=== PATIENT | female | born 1985 | race Caucasian/White ===

== ENCOUNTER 2017-09-05 22:17 | Emergency (ER) | payer OTHER, MEDICAID ==
[~2017-09-05] VITALS: Ht 172.7 cm; Wt 145.2 kg
[~2017-09-05 22:17] MED LIST: AMOXICILLIN 50500 MG PO; AMOXICILLIN875 MG PO; CYMBALTA20 MG PO; IBUPROFEN 800800 MG PO; KLONOPIN1 MG PO; LIDOCAINE VISC100 ML PO; NORCO 5-325 TA1 EACH PO; PAXIL10 MG PO; TRAMADOL 50 MG50 MG PO
[2017-09-05 22:22] VITALS: BP 147/90
[2017-09-05] MEDS ORDERED: AMOXICILLIN 50500 MG PO (22:42)
[2017-09-05] MEDS ORDERED: NORCO 5-325 TA1 EACH PO (22:42)
== END 2017-09-05 23:00 | disposition home or self-care (01) ==
LOC: M.ERS 22:17
DX: G89.18 Other acute postprocedural pain (principal); K08.9 Disorder of teeth and supporting structures, unspecified

== ENCOUNTER 2017-09-12 12:16 | Emergency (ER) | payer OTHER, MEDICAID ==
[~2017-09-12] VITALS: Ht 170.2 cm; Wt 145.2 kg
[2017-09-12] MEDS ORDERED: NORCO 5-325 TA1 EACH PO (15:13)
[2017-09-12] MEDS ORDERED: IBUPROFEN 800800 MG PO (15:38)
[2017-09-12 15:48] VITALS: BP 164/80
== END 2017-09-12 15:48 | disposition home or self-care (01) ==
LOC: M.ERS 12:16
DX: S62.619A Displaced fracture of proximal phalanx of unspecified finger, initial encounter for closed fracture (principal); M25.511 Pain in right shoulder; Y04.8XXA Assault by other bodily force, initial encounter; Y93.89 Activity, other specified; Y92.59 Other trade areas as the place of occurrence of the external cause; Y99.8 Other external cause status

== ENCOUNTER 2017-09-14 13:37 | Emergency (ER) | payer OTHER, MEDICAID ==
[~2017-09-14] VITALS: Ht 172.7 cm; Wt 145.2 kg
[2017-09-14] MEDS ORDERED: IBUPROFEN 800800 M1 PO (15:32)
[2017-09-14] MEDS ORDERED: HYDROCODONE-AP1 EAC6 PO (15:32)
[2017-09-14 15:42] VITALS: BP 150/98
== END 2017-09-14 15:43 | disposition home or self-care (01) ==
LOC: M.ERS 13:37
DX: S62.613D Displaced fracture of proximal phalanx of left middle finger, subsequent encounter for fracture with routine healing (principal); F17.210 Nicotine dependence, cigarettes, uncomplicated; X58.XXXD Exposure to other specified factors, subsequent encounter